=== PATIENT | male | born 1975 | race Caucasian/White ===

== ENCOUNTER → 2017-12-09 | Outpatient (CLI) | payer BC ==
--- NOTE | 2017-12-09 11:53 | US ---
EXAMINATION TYPE: US venous doppler duplex LE LT DATE OF EXAM: 12/09/2017 11:20 AM COMPARISON: NONE CLINICAL HISTORY: Edema R60.0, Pain left leg M79.605. Pt states left leg pain and swelling, no prior DVT/ Severe morbid obesity SIDE PERFORMED: Left TECHNIQUE: The lower extremity deep venous system is examined utilizing real time linear array sonog linda with graded compression, doppler sonography and color-flow sonography. VESSELS IMAGED: External Iliac Vein (EIV) Common Femoral Vein Deep Femoral Vein Greater Saphenous Vein * Femoral Vein Popliteal Vein Small Saphenous Vein * Proximal Calf Veins (* superficial vessels) Left EIV and deep femoral vein not visualized due to morbid obesity Left Leg: Limited views show no evidence of DVT, enlarged lymph node in left groin= 1.5 cm Suboptimal study due to patient's body habitus. Grayscale, color doppler, spectral doppler imaging pe rformed of the deep veins of the left lower extremity. There is normal flow, compressibility, vascul ar waveforms. IMPRESSION: Suboptimal study without convincing evidence of acute DVT in the left lower extremity.
== END | disposition home or self-care (01) ==
LOC: RADUSWWP 10:58
PROVIDERS: ATTEND Family Medicine
DX: M79.605 Pain in left leg (principal); R22.42 Localized swelling, mass and lump, left lower limb